=== PATIENT | female | born 1995 | race Caucasian/White ===

== ENCOUNTER 2018-05-23 23:49 | Emergency (ER) | payer SELFPAY ==
[~2018-05-23] VITALS: Ht 162.6 cm; Wt 92.1 kg
[2018-05-24 00:16] VITALS: Ht 162.6 cm; Wt 92.1 kg
[2018-05-24 01:45] VITALS: BP 112/67
== END 2018-05-24 02:00 | disposition home or self-care (01) ==
LOC: ED 23:49
DX: O23.592 Infection of other part of genital tract in pregnancy, second trimester (principal); Z3A.20 20 weeks gestation of pregnancy